=== PATIENT | male | born 1985 | race Hispanic/Latino ===

== ENCOUNTER 2019-07-20 21:45 | Emergency (ER) | payer SELFPAY ==
--- NOTE | 2019-07-20 22:28 | RAD ---
Exam: Chest 2 views HISTORY:Pain Comparison: None FINDINGS: Lungs: No masses or consolidation. Cardiac silhouette: Normal size Pulmonary vessels: Normal Pleural Spaces: Clear Pneumothorax: None Osseous abnormalities: None of acuity. IMPRESSION: No focal consolidation.
[2019-07-20] MEDS ORDERED: Ketorolac Tromethamine 60 MG/2 ML VIAL ONE (22:39)
[2019-07-20] MEDS ORDERED: Acetaminophen 500 MG TAB ONE (22:39)
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
== END 2019-07-20 23:05 | disposition home or self-care (01) ==
LOC: ERS 21:45
DX: S23.41XA Sprain of ribs, initial encounter (principal); V43.52XA Car driver injured in collision with other type car in traffic accident, initial encounter
CPT/HCPCS: 71046; 93005; 96372; J1885